=== PATIENT | female | born 1960 | race Asian ===

== ENCOUNTER 2022-04-09 08:25 | Day surgery (SDC) | payer OTHER ==
[~2022-04-09] VITALS: Ht 167.6 cm; Wt 77.1 kg
[2022-04-09] MEDS ORDERED: fentaNYL citrate 0.05 MG/ML VIAL ONE (10:10)
[2022-04-09] MEDS ORDERED: LIDOCAINE 2% 100 MG/5 ML UJET TP ONE (10:10)
[2022-04-09] MEDS ORDERED: fentaNYL citrate 0.05 MG/ML VIAL IVP ONE (12:20)
== END 2022-04-09 11:43 | disposition home or self-care (01) ==
LOC: MMU 08:25 → MDS 08:25
PROVIDERS: ATTEND Internal Medicine Gastroenterology
DX: Z12.11 Encounter for screening for malignant neoplasm of colon (principal); K63.5 Polyp of colon; I10 Essential (primary) hypertension; Z79.899 Other long term (current) drug therapy; Z20.822 Contact with and (suspected) exposure to COVID-19
CPT/HCPCS: 45385; 87426; J3010